=== PATIENT | male | born 1965 | race Caucasian/White ===

== ENCOUNTER → 2016-07-10 | Outpatient (CLI) | payer OTHER ==
[2016-07-10 09:18] LABS: BASOPHIL % 0.4 % (0-2); PLATELET COUNT 196 x10^3mcL (130-400); RED CELL DISTRIBUTION WIDTH 13.2 % (11.5-14.5)
[2016-07-10 09:38] LABS: ALBUMIN 4.3 g/dL (3.4-5.0); ALKALINE PHOSPHATASE 55 U/L (46-116); ALT/SGPT 28 U/L (16-63); AST/SGOT 24 U/L (15-37); BILIRUBIN TOTAL 0.6 mg/dL (0.20-1.00); CALCIUM 9.2 mg/dL (8.5-10.1); CARBON DIOXIDE 32.1 mmol/L (21-32); CHLORIDE SERUM 104 mmol/L (98-107); CREATININE SERUM 1.1 mg/dL (0.7-1.3); GFR1 > 60 mL/min; GLUCOSE SERUM 64 mg/dL (74-106); POTASSIUM SERUM 4.3 mmol/L (3.5-5.1); SODIUM SERUM 141 mmol/L (136-145); TOTAL PROTEIN, SERUM 7.2 g/dL (6.4-8.2)
== END | disposition home or self-care (01) ==
LOC: LB 08:55
DX: C09.9 Malignant neoplasm of tonsil, unspecified (principal)

== ENCOUNTER → 2016-07-31 | Outpatient (CLI) | payer OTHER ==
[2016-07-31 09:30] LABS: ALKALINE PHOSPHATASE 48 U/L (46-116); ALT/SGPT 25 U/L (16-63); AST/SGOT 17 U/L (15-37); BILIRUBIN TOTAL 0.7 mg/dL (0.20-1.00); CALCIUM 8.8 mg/dL (8.5-10.1); CARBON DIOXIDE 32.6 mmol/L (21-32); CHLORIDE SERUM 106 mmol/L (98-107); CREATININE SERUM 1.2 mg/dL (0.7-1.3); GFR1 > 60 mL/min; GLUCOSE SERUM 66 mg/dL (74-106); POTASSIUM SERUM 4.3 mmol/L (3.5-5.1); SODIUM SERUM 143 mmol/L (136-145); TOTAL PROTEIN, SERUM 6.7 g/dL (6.4-8.2)
[2016-07-31 09:44] LABS: BASOPHIL % 0.2 % (0-2); PLATELET COUNT 187 x10^3mcL (130-400); RED CELL DISTRIBUTION WIDTH 13.3 % (11.5-14.5)
== END | disposition home or self-care (01) ==
LOC: LB 08:35
PROVIDERS: Internal Medicine Medical Oncology
DX: C09.9 Malignant neoplasm of tonsil, unspecified (principal)

== ENCOUNTER → 2016-08-21 | Outpatient (CLI) | payer OTHER ==
[2016-08-21 09:38] LABS: BASOPHIL % 0.3 % (0-2); PLATELET COUNT 186 x10^3mcL (130-400); RED CELL DISTRIBUTION WIDTH 13.3 % (11.5-14.5)
[2016-08-21 10:12] LABS: CARBON DIOXIDE 30.8 mmol/L (21-32); CHLORIDE SERUM 105 mmol/L (98-107); POTASSIUM SERUM 4.1 mmol/L (3.5-5.1); SODIUM SERUM 141 mmol/L (136-145)
[2016-08-21 10:13] LABS: ALBUMIN 4.2 g/dL (3.4-5.0); ALKALINE PHOSPHATASE 49 U/L (46-116); ALT/SGPT 25 U/L (16-63); AST/SGOT 20 U/L (15-37); BILIRUBIN TOTAL 0.59 mg/dL (0.20-1.00); GFR1 > 60 mL/min; GLUCOSE SERUM 70 mg/dL (74-106); TOTAL PROTEIN, SERUM 7.3 g/dL (6.4-8.2)
== END | disposition home or self-care (01) ==
LOC: LB 08:56
PROVIDERS: Internal Medicine Medical Oncology
DX: C09.9 Malignant neoplasm of tonsil, unspecified (principal)

== ENCOUNTER → 2016-09-11 | Outpatient (CLI) | payer OTHER ==
[2016-09-11 09:47] LABS: BASOPHIL % 0.2 % (0-2); PLATELET COUNT 187 x10^3mcL (130-400); RED CELL DISTRIBUTION WIDTH 13.5 % (11.5-14.5)
[2016-09-11 10:28] LABS: ALBUMIN 4.1 g/dL (3.4-5.0); ALKALINE PHOSPHATASE 47 U/L (46-116); ALT/SGPT 20 U/L (16-63); AST/SGOT 16 U/L (15-37); BILIRUBIN TOTAL 0.6 mg/dL (0.20-1.00); CARBON DIOXIDE 24.8 mmol/L (21-32); CHLORIDE SERUM 103 mmol/L (98-107); CREATININE SERUM 1.2 mg/dL (0.7-1.3); GFR1 > 60 mL/min; GLUCOSE SERUM 91 mg/dL (74-106); POTASSIUM SERUM 4.1 mmol/L (3.5-5.1); SODIUM SERUM 137 mmol/L (136-145)
== END | disposition home or self-care (01) ==
LOC: LB 09:00
PROVIDERS: Internal Medicine Medical Oncology
DX: C09.9 Malignant neoplasm of tonsil, unspecified (principal)

== ENCOUNTER → 2016-10-02 | Day surgery (SDC) | payer OTHER ==
[~2016-10-02] VITALS: Ht 175.3 cm; Wt 76.7 kg
[2016-10-02 11:22] VITALS: BP 101/60
[2016-10-02 11:59] LABS: BASOPHIL % 0.3 % (0-2); PLATELET COUNT 172 x10^3mcL (130-400); RED CELL DISTRIBUTION WIDTH 13.5 % (11.5-14.5)
[2016-10-02 12:09] LABS: CALCIUM 8.7 mg/dL (8.5-10.1); CARBON DIOXIDE 25.4 mmol/L (21-32); CHLORIDE SERUM 106 mmol/L (98-107); GFR1 > 60 mL/min; GLUCOSE SERUM 108 mg/dL (74-106); POTASSIUM SERUM 4.5 mmol/L (3.5-5.1); SODIUM SERUM 140 mmol/L (136-145)
[2016-10-02 12:22] LABS: ALBUMIN 3.9 g/dL (3.4-5.0); ALKALINE PHOSPHATASE 42 U/L (46-116); ALT/SGPT 17 U/L (16-63); AST/SGOT 16 U/L (15-37); BILIRUBIN TOTAL 0.61 mg/dL (0.20-1.00); TOTAL PROTEIN, SERUM 6.7 g/dL (6.4-8.2)
[2016-10-02 15:19] VITALS: BP 114/68
== END | disposition home or self-care (01) ==
LOC: DS 10:50 → OR 13:00
PROVIDERS: Surgery
PROC: 0JB80ZZ Excision of Abdomen Subcutaneous Tissue and Fascia, Open Approach (ICD-10-PCS; 2016-10-02)
PROC: 0WP803Z Removal of Infusion Device from Chest Wall, Open Approach (ICD-10-PCS; principal; 2016-10-02 13:00)
DX: Z45.2 Encounter for adjustment and management of vascular access device (principal); Z43.1 Encounter for attention to gastrostomy; Z85.818 Personal history of malignant neoplasm of other sites of lip, oral cavity, and pharynx
CPT/HCPCS: J0690; J2250; J2704; J3010; J3490; J7120; Q0092

== ENCOUNTER → 2016-10-23 | Outpatient (CLI) | payer OTHER ==
[2016-10-23 09:13] LABS: BASOPHIL % 0.3 % (0-2); PLATELET COUNT 195 x10^3mcL (130-400); RED CELL DISTRIBUTION WIDTH 13.3 % (11.5-14.5)
[2016-10-23 09:37] LABS: ALBUMIN 4.3 g/dL (3.4-5.0); ALKALINE PHOSPHATASE 45 U/L (46-116); ALT/SGPT 19 U/L (16-63); AST/SGOT 16 U/L (15-37); BILIRUBIN TOTAL 0.9 mg/dL (0.20-1.00); CALCIUM 9.2 mg/dL (8.5-10.1); CARBON DIOXIDE 30.2 mmol/L (21-32); CHLORIDE SERUM 103 mmol/L (98-107); CREATININE SERUM 1.2 mg/dL (0.7-1.3); GFR1 > 60 mL/min; GLUCOSE SERUM 62 mg/dL (74-106); POTASSIUM SERUM 3.9 mmol/L (3.5-5.1); SODIUM SERUM 138 mmol/L (136-145); TOTAL PROTEIN, SERUM 7.1 g/dL (6.4-8.2)
== END | disposition home or self-care (01) ==
LOC: LB 08:45
PROVIDERS: Internal Medicine Medical Oncology
DX: C09.9 Malignant neoplasm of tonsil, unspecified (principal)

== ENCOUNTER → 2017-01-20 | Outpatient (CLI) | payer OTHER ==
[2017-01-20 10:06] LABS: BASOPHIL % 0.2 % (0-2); PLATELET COUNT 195 x10^3mcL (130-400)
[2017-01-20 14:39] LABS: ALKALINE PHOSPHATASE 56 U/L (46-116); ALT/SGPT 12 U/L (16-63); AST/SGOT 23 U/L (15-37); BILIRUBIN TOTAL 0.6 mg/dL (0.20-1.00); CARBON DIOXIDE 26.9 mmol/L (21-32); CHLORIDE SERUM 104 mmol/L (98-107); POTASSIUM SERUM 4.5 mmol/L (3.5-5.1); SODIUM SERUM 139 mmol/L (136-145); TOTAL PROTEIN, SERUM 7.4 g/dL (6.4-8.2)
[2017-01-20 14:42] LABS: ALBUMIN 4.4 g/dL (3.4-5.0); CALCIUM 9.1 mg/dL (8.5-10.1); CREATININE SERUM 1.1 mg/dL (0.7-1.3); GFR1 > 60 mL/min; GLUCOSE SERUM 86 mg/dL (74-106)
== END | disposition home or self-care (01) ==
LOC: LB 09:46
PROVIDERS: Internal Medicine Medical Oncology
DX: C09.9 Malignant neoplasm of tonsil, unspecified (principal)

== ENCOUNTER → 2017-04-29 | Outpatient (CLI) | payer OTHER ==
[2017-04-29 10:01] LABS: BASOPHIL % 0.2 % (0-2); PLATELET COUNT 221 x10^3mcL (130-400); RED CELL DISTRIBUTION WIDTH 12.9 % (11.5-14.5)
[2017-04-29 10:17] LABS: ALKALINE PHOSPHATASE 65 U/L (46-116); ALT/SGPT 39 U/L (16-63); AST/SGOT 23 U/L (15-37); BILIRUBIN TOTAL 0.38 mg/dL (0.20-1.00); CALCIUM 8.9 mg/dL (8.5-10.1); CARBON DIOXIDE 28.7 mmol/L (21-32); CHLORIDE SERUM 103 mmol/L (98-107); CREATININE SERUM 1.1 mg/dL (0.7-1.3); GFR1 > 60 mL/min; GLUCOSE SERUM 88 mg/dL (74-106); POTASSIUM SERUM 4.4 mmol/L (3.5-5.1); SODIUM SERUM 139 mmol/L (136-145); TOTAL PROTEIN, SERUM 7.2 g/dL (6.4-8.2)
== END | disposition home or self-care (01) ==
LOC: LB 09:34
PROVIDERS: Internal Medicine Medical Oncology
DX: C09.9 Malignant neoplasm of tonsil, unspecified (principal)

== ENCOUNTER → 2017-10-29 | Outpatient (CLI) | payer OTHER ==
[2017-10-29 08:57] LABS: BASOPHIL % 0.3 % (0-2); PLATELET COUNT 159 x10^3mcL (130-400); RED CELL DISTRIBUTION WIDTH 14.3 % (11.5-14.5)
[2017-10-29 09:23] LABS: ALBUMIN 4.1 g/dL (3.4-5.0); ALKALINE PHOSPHATASE 50 U/L (46-116); ALT/SGPT 27 U/L (16-63); AST/SGOT 23 U/L (15-37); BILIRUBIN TOTAL 0.63 mg/dL (0.20-1.00); CALCIUM 9.2 mg/dL (8.5-10.1); CARBON DIOXIDE 28.5 mmol/L (21-32); CHLORIDE SERUM 104 mmol/L (98-107); CREATININE SERUM 1.3 mg/dL (0.7-1.3); GFR1 > 60 mL/min; GLUCOSE SERUM 72 mg/dL (74-106); POTASSIUM SERUM 4.2 mmol/L (3.5-5.1); SODIUM SERUM 136 mmol/L (136-145); TOTAL PROTEIN, SERUM 6.9 g/dL (6.4-8.2)
== END | disposition home or self-care (01) ==
LOC: LB 08:16
PROVIDERS: Internal Medicine Medical Oncology
DX: C09.9 Malignant neoplasm of tonsil, unspecified (principal)

== ENCOUNTER → 2018-04-28 | Outpatient (CLI) | payer OTHER ==
[2018-04-28 09:49] LABS: ALBUMIN 4.2 g/dL (3.4-5.0); BILIRUBIN TOTAL 0.5 mg/dL (0.20-1.00); CALCIUM 9.3 mg/dL (8.5-10.1); CARBON DIOXIDE 28.8 mmol/L (21-32); CREATININE SERUM 1.4 mg/dL (0.7-1.3); POTASSIUM SERUM 4.5 mmol/L (3.5-5.1); TOTAL PROTEIN, SERUM 7.2 g/dL (6.4-8.2)
[2018-04-28 09:53] LABS: BASOPHIL % 0.3 % (0-2); PLATELET COUNT 153 x10^3mcL (130-400)
[2018-04-28 09:56] LABS: RED CELL DISTRIBUTION WIDTH 14.6 % (11.5-14.5)
== END | disposition home or self-care (01) ==
LOC: LB 09:05
DX: C76.0 Malignant neoplasm of head, face and neck (principal)

== ENCOUNTER → 2018-10-24 | Outpatient (CLI) | payer OTHER ==
[2018-10-24 09:51] LABS: BASOPHIL % 0.3 % (0-2); PLATELET COUNT 156 x10^3mcL (130-400); RED CELL DISTRIBUTION WIDTH 13.9 % (11.5-14.5)
[2018-10-24 10:16] LABS: ALBUMIN 3.8 g/dL (3.4-5.0); ALKALINE PHOSPHATASE 54 U/L (46-116); ALT/SGPT 26 U/L (16-63); AST/SGOT 17 U/L (15-37); CALCIUM 9.1 mg/dL (8.5-10.1); CARBON DIOXIDE 27.5 mmol/L (21-32); CHLORIDE SERUM 106 mmol/L (98-107); GFR1 > 60 mL/min; GLUCOSE SERUM 96 mg/dL (74-106); POTASSIUM SERUM 4.6 mmol/L (3.5-5.1); SODIUM SERUM 142 mmol/L (136-145); TOTAL PROTEIN, SERUM 6.7 g/dL (6.4-8.2)
== END | disposition home or self-care (01) ==
LOC: LB 09:10
DX: C76.0 Malignant neoplasm of head, face and neck (principal)

== ENCOUNTER → 2019-04-24 | Outpatient (CLI) | payer OTHER ==
[2019-04-24 09:44] LABS: BASOPHIL % 0.2 % (0-2); PLATELET COUNT 144 x10^3mcL (130-400); RED CELL DISTRIBUTION WIDTH 13.7 % (11.5-14.5)
[2019-04-24 10:06] LABS: ALBUMIN 3.4 g/dL (3.4-5.0); ALKALINE PHOSPHATASE 86 U/L (46-116); ALT/SGPT 29 U/L (16-63); AST/SGOT 23 U/L (15-37); BILIRUBIN TOTAL 0.34 mg/dL (0.20-1.00); CALCIUM 8.5 mg/dL (8.5-10.1); CARBON DIOXIDE 31.3 mmol/L (21-32); CHLORIDE SERUM 102 mmol/L (98-107); CREATININE SERUM 1.1 mg/dL (0.7-1.3); GFR1 > 60 mL/min; GLUCOSE SERUM 75 mg/dL (74-106); POTASSIUM SERUM 4.3 mmol/L (3.5-5.1); SODIUM SERUM 139 mmol/L (136-145); TOTAL PROTEIN, SERUM 7.1 g/dL (6.4-8.2)
== END | disposition home or self-care (01) ==
LOC: LB 09:18
DX: D49.0 Neoplasm of unspecified behavior of digestive system (principal)

== ENCOUNTER → 2019-10-20 | Outpatient (CLI) | payer OTHER ==
[2019-10-20 10:13] LABS: BASOPHIL % 0.3 % (0-2); PLATELET COUNT 253 x10^3mcL (130-400)
[2019-10-20 10:21] LABS: ALBUMIN 3.6 g/dL (3.4-5.0); ALKALINE PHOSPHATASE 72 U/L (46-116); ALT/SGPT 31 U/L (16-63); AST/SGOT 18 U/L (15-37); BILIRUBIN TOTAL 0.45 mg/dL (0.20-1.00); CALCIUM 8.9 mg/dL (8.5-10.1); CARBON DIOXIDE 27.6 mmol/L (21-32); CHLORIDE SERUM 102 mmol/L (98-107); CREATININE SERUM 1.3 mg/dL (0.7-1.3); FREE T4 0.69 ng/dL (0.76-1.46); GFR1 > 60 mL/min; GLUCOSE SERUM 105 mg/dL (74-106); LACTIC DEHYDROGENASE (LDH) 156 U/L (100-190); POTASSIUM SERUM 4.4 mmol/L (3.5-5.1); SODIUM SERUM 138 mmol/L (136-145); TOTAL PROTEIN, SERUM 6.9 g/dL (6.4-8.2)
== END | disposition home or self-care (01) ==
LOC: LB 09:16
PROVIDERS: ATTEND Internal Medicine Medical Oncology
DX: C09.9 Malignant neoplasm of tonsil, unspecified (principal)
CPT/HCPCS: 84439

== ENCOUNTER → 2019-12-29 | Outpatient (CLI) | payer OTHER ==
[2019-12-29 09:46] LABS: ALKALINE PHOSPHATASE 77 U/L (46-116); ALT/SGPT 43 U/L (16-63); AST/SGOT 34 U/L (15-37); BILIRUBIN TOTAL 0.2 mg/dL (0.20-1.00); CALCIUM 8.6 mg/dL (8.5-10.1); CHLORIDE SERUM 102 mmol/L (98-107); CREATININE SERUM 1.1 mg/dL (0.7-1.3); FREE T4 0.43 ng/dL (0.76-1.46); GFR1 > 60 mL/min; GLUCOSE SERUM 65 mg/dL (74-106); LACTIC DEHYDROGENASE (LDH) 155 U/L (100-190); PHOSPHOROUS 3.5 mg/dL (2.5-4.9); SODIUM SERUM 135 mmol/L (136-145); TOTAL PROTEIN, SERUM 6.2 g/dL (6.4-8.2); URIC ACID 3.6 mg/dL (3.5-7.2)
[2019-12-29 09:52] LABS: BASOPHIL % 0.2 % (0-2); PLATELET COUNT 315 x10^3mcL (130-400)
[2019-12-29 09:55] LABS: RED CELL DISTRIBUTION WIDTH 16.4 % (11.5-14.5)
== END | disposition home or self-care (01) ==
LOC: LB 08:54
PROVIDERS: ATTEND Internal Medicine Medical Oncology
DX: C82.00 Follicular lymphoma grade I, unspecified site (principal)
CPT/HCPCS: 84439

== ENCOUNTER → 2020-01-17 | Outpatient (CLI) | payer OTHER ==
[2020-01-17 10:05] LABS: ALKALINE PHOSPHATASE 96 U/L (46-116); ALT/SGPT 20 U/L (16-63); AST/SGOT 18 U/L (15-37); BILIRUBIN TOTAL 0.3 mg/dL (0.20-1.00); CALCIUM 9.1 mg/dL (8.5-10.1); CARBON DIOXIDE 30.2 mmol/L (21-32); CHLORIDE SERUM 100 mmol/L (98-107); CREATININE SERUM 1.1 mg/dL (0.7-1.3); GFR1 > 60 mL/min; GLUCOSE SERUM 63 mg/dL (74-106); POTASSIUM SERUM 4.4 mmol/L (3.5-5.1); SODIUM SERUM 134 mmol/L (136-145); TOTAL PROTEIN, SERUM 6.7 g/dL (6.4-8.2)
[2020-01-17 10:13] LABS: ALBUMIN 3.3 g/dL (3.4-5.0)
[2020-01-17 11:40] LABS: PLATELET COUNT 261 x10^3mcL (130-400); RED CELL DISTRIBUTION WIDTH 18.6 % (11.5-14.5)
[2020-01-17 11:44] LABS: BAND NEUTROPHIL 2 % (0-10); MONOCYTE 4 % (0-7); SEGMENTED NEUTROPHILS 87 % (37-75); rbc morphology (normal/abnorm) ABNORMAL (NORMAL)
== END | disposition home or self-care (01) ==
LOC: LB 09:26
DX: C82.00 Follicular lymphoma grade I, unspecified site (principal)

== ENCOUNTER → 2020-02-09 | Outpatient (CLI) | payer OTHER ==
[2020-02-09 10:34] LABS: PLATELET COUNT 312 x10^3mcL (130-400)
[2020-02-09 10:42] LABS: BASOPHIL % 0 % (0-2); RED CELL DISTRIBUTION WIDTH 18.3 % (11.5-14.5)
[2020-02-09 10:49] LABS: ALKALINE PHOSPHATASE 92 U/L (46-116); ALT/SGPT 26 U/L (16-63); AST/SGOT 30 U/L (15-37); BILIRUBIN TOTAL 0.54 mg/dL (0.20-1.00); CALCIUM 8.7 mg/dL (8.5-10.1); CARBON DIOXIDE 30.4 mmol/L (21-32); CHLORIDE SERUM 98 mmol/L (98-107); CREATININE SERUM 1.1 mg/dL (0.7-1.3); GFR1 > 60 mL/min; GLUCOSE SERUM 99 mg/dL (74-106); POTASSIUM SERUM 4.5 mmol/L (3.5-5.1); SODIUM SERUM 135 mmol/L (136-145); TOTAL PROTEIN, SERUM 6.7 g/dL (6.4-8.2)
[2020-02-09 10:50] LABS: ALBUMIN 3.1 g/dL (3.4-5.0)
== END | disposition home or self-care (01) ==
LOC: LB 09:51
PROVIDERS: ATTEND Internal Medicine Medical Oncology
DX: C82.00 Follicular lymphoma grade I, unspecified site (principal)

== ENCOUNTER → 2020-02-29 | Outpatient (CLI) | payer OTHER ==
[2020-02-29 10:05] LABS: BASOPHIL % 0.1 % (0-2); PLATELET COUNT 300 x10^3mcL (130-400); RED CELL DISTRIBUTION WIDTH 18.3 % (11.5-14.5)
[2020-02-29 10:26] LABS: BILIRUBIN TOTAL 0.02 mg/dL (0.20-1.00); CALCIUM 8.4 mg/dL (8.5-10.1); CARBON DIOXIDE 28.9 mmol/L (21-32); CREATININE SERUM 1.9 mg/dL (0.7-1.3); POTASSIUM SERUM 4.7 mmol/L (3.5-5.1); TOTAL PROTEIN, SERUM 6.2 g/dL (6.4-8.2)
[2020-02-29 10:31] LABS: ALBUMIN 3.3 g/dL (3.4-5.0)
== END | disposition home or self-care (01) ==
LOC: LB 09:35
PROVIDERS: ATTEND Internal Medicine Medical Oncology
DX: C82.00 Follicular lymphoma grade I, unspecified site (principal)

== ENCOUNTER → 2020-03-06 | Outpatient (CLI) | payer OTHER ==
[2020-03-06 09:49] LABS: ALBUMIN 3.4 g/dL (3.4-5.0); ALKALINE PHOSPHATASE 67 U/L (46-116); ALT/SGPT 20 U/L (16-63); AST/SGOT 23 U/L (15-37); BILIRUBIN TOTAL 0.36 mg/dL (0.20-1.00); CALCIUM 9.2 mg/dL (8.5-10.1); CARBON DIOXIDE 28.4 mmol/L (21-32); CHLORIDE SERUM 102 mmol/L (98-107); CREATININE SERUM 1.2 mg/dL (0.7-1.3); GFR1 > 60 mL/min; GLUCOSE SERUM 80 mg/dL (74-106); SODIUM SERUM 136 mmol/L (136-145); TOTAL PROTEIN, SERUM 6.8 g/dL (6.4-8.2)
== END | disposition home or self-care (01) ==
LOC: LB 09:21
PROVIDERS: ATTEND Internal Medicine Medical Oncology
DX: C82.00 Follicular lymphoma grade I, unspecified site (principal)

== ENCOUNTER → 2020-03-14 | Outpatient (CLI) | payer OTHER ==
[2020-03-14 09:27] LABS: BASOPHIL % 0.4 % (0-2); PLATELET COUNT 303 x10^3mcL (130-400)
[2020-03-14 09:40] LABS: RED CELL DISTRIBUTION WIDTH 16.8 % (11.5-14.5)
[2020-03-14 09:43] LABS: ALBUMIN 3.4 g/dL (3.4-5.0); ALKALINE PHOSPHATASE 62 U/L (46-116); ALT/SGPT 24 U/L (16-63); AST/SGOT 25 U/L (15-37); BILIRUBIN TOTAL 0.41 mg/dL (0.20-1.00); CALCIUM 8.9 mg/dL (8.5-10.1); CARBON DIOXIDE 29.3 mmol/L (21-32); CHLORIDE SERUM 100 mmol/L (98-107); CREATININE SERUM 1.1 mg/dL (0.7-1.3); GFR1 > 60 mL/min; GLUCOSE SERUM 69 mg/dL (74-106); POTASSIUM SERUM 4.3 mmol/L (3.5-5.1); SODIUM SERUM 136 mmol/L (136-145); TOTAL PROTEIN, SERUM 6.8 g/dL (6.4-8.2)
== END | disposition home or self-care (01) ==
LOC: LB 09:06
DX: C82.00 Follicular lymphoma grade I, unspecified site (principal)

== ENCOUNTER → 2020-04-04 | Outpatient (CLI) | payer OTHER ==
[2020-04-04 09:54] LABS: PLATELET COUNT 301 x10^3mcL (152-348)
[2020-04-04 10:22] LABS: ALBUMIN 3.7 g/dL (3.4-5.0); ALKALINE PHOSPHATASE 71 U/L (46-116); ALT/SGPT 21 U/L (16-63); AST/SGOT 22 U/L (15-37); BILIRUBIN TOTAL 0.2 mg/dL (0.20-1.00); CALCIUM 8.8 mg/dL (8.5-10.1); CARBON DIOXIDE 30.2 mmol/L (21-32); CHLORIDE SERUM 101 mmol/L (98-107); CREATININE SERUM 1.1 mg/dL (0.7-1.3); GFR1 > 60 mL/min; GLUCOSE SERUM 79 mg/dL (74-106); POTASSIUM SERUM 4.5 mmol/L (3.5-5.1); SODIUM SERUM 136 mmol/L (136-145); TOTAL PROTEIN, SERUM 6.8 g/dL (6.4-8.2)
[2020-04-04 12:17] LABS: RED CELL DISTRIBUTION WIDTH 15.5 % (12.1-16.2)
[2020-04-04 14:40] LABS: BAND NEUTROPHIL 2 % (0-10); MONOCYTE 5 % (0-7); PLATELET MORPHOLOGY PLATELETS NORMAL; SEGMENTED NEUTROPHILS 84 % (37-75); rbc morphology (normal/abnorm) NORMAL (NORMAL)
== END ==
LOC: LB 09:08
DX: C82.00 Follicular lymphoma grade I, unspecified site (principal)